=== PATIENT | female | born 1935 | race Two or more races ===

== ENCOUNTER 2025-02-26 09:56 | Emergency (ER) | payer OTHER ==
[~2025-02-26] VITALS: Ht 160 cm; Wt 93.4 kg
[2025-02-26] MEDS ORDERED: LIPITOR40 M1 PO (10:29)
[2025-02-26] MEDS ORDERED: HORIZANT600 MG (10:29)
[2025-02-26] MEDS ORDERED: FEOSOL325 MG (10:30)
[2025-02-26] MEDS ORDERED: HYDRALAZINE HCL50 MG PO (10:30)
[2025-02-26] MEDS ORDERED: CIPRO500 MG (10:30)
[2025-02-26] MEDS ORDERED: SYNJARDY 5-5001 EACH PO (10:31)
[2025-02-26] MEDS ORDERED: COZAAR100 MG PO (10:31)
[2025-02-26] MEDS ORDERED: DULOXETINE HCL40 MG (10:31)
[2025-02-26] MEDS ORDERED: CARVEDILOL ER40 MG (10:32)
[2025-02-26] MEDS ORDERED: ECOTRIN325 M1 (10:32)
[2025-02-26] MEDS ORDERED: ISOSORBIDE DINI30 MG (10:32)
[2025-02-26] MEDS ORDERED: REMINYL8 MG PO (10:32)
[2025-02-26] MEDS ORDERED: XYZAL5 MG (10:33)
[2025-02-26] MEDS ORDERED: FLEVOXIN TABLE1 EACH PO (10:33)
[2025-02-26] MEDS ORDERED: ANASTROZOLE1 MG PO (10:33)
[2025-02-26] MEDS ORDERED: IPRATROPIUM/ALBUTEROL SULFATE 3 ML AMPUL.NEB IH ONE ×2 (11:15→12:13)
[2025-02-26 11:25] LABS: BASO % 1.1 % (0.1-1.2); EOS # 0.48 (0.04-0.54); EOS % 9.1 % (0.7-7.0); LYMPH # 1.01 (1.18-3.74); LYMPH % 19.2 % (19.3-53.1); MEAN PLATELET VOLUME 9.40 fl (9.4-12.4); MONO # 0.46 (0.24-0.82); MONO % 8.7 % (4.7-12.5); NEUT # 3.18 (1.56-6.13); NEUT % 60.6 % (34.0-71.1); RED CELL DISTRIBUTION WIDTH 14.6 % (11.6-14.4)
[2025-02-26 11:58] LABS: COVID-19 AG NEGATIVE (NEGATIVE)
[2025-02-26 12:06] LABS: ALT/SGPT 15.0 U/L (12-78); AST/SGOT 9.0 U/L (15-37); BILIRUBIN TOTAL 0.67 mg/dL (0.3-1.2); BUN CREA RATIO 19.0 (7.0-25.0); CREATININE SERUM 1.55 mg/dL (0.55-1.02); GFR 31.48; GLOBULINA 3.1 G/DL (2.4-3.5); GLUCOSE FASTING 139.0 mg/dL (65-100); OSMOLALITY SERUM 293.0 MOSM/KG (275-295)
[2025-02-26] MEDS ORDERED: BUDESONIDE 0.5 MG/2 ML AMPUL.NEB IH ONE ×2 (12:23→12:30)
[2025-02-26 12:24] LABS: ABG PH 7.338 (7.35-7.45); ABG PO2 77.9 mmHg (80-100); BICARBONATE 17.4 mmol/l (23-25)
[2025-02-26 13:49] LABS: o2 21 %
== END 2025-02-26 16:18 | disposition home or self-care (01) ==
LOC: ER 09:56
PROVIDERS: Emergency Medicine
DX: J45.901 Unspecified asthma with (acute) exacerbation (principal); R06.02 Shortness of breath; Z20.822 Contact with and (suspected) exposure to COVID-19; E11.9 Type 2 diabetes mellitus without complications; Z79.84 Long term (current) use of oral hypoglycemic drugs; I10 Essential (primary) hypertension; Z88.8 Allergy status to other drugs, medicaments and biological substances; Z95.0 Presence of cardiac pacemaker